=== PATIENT | female | born 1990 | race Caucasian/White ===

== ENCOUNTER 2022-11-18 08:48 | Emergency (ER) | payer BC, OTHER ==
[~2022-11-18] VITALS: Ht 160 cm; Wt 65.5 kg
[2022-11-18 09:25] VITALS: BP 133/76
[2022-11-18] MEDS ORDERED: MECL1TAB31 PO (09:59)
== END 2022-11-18 10:01 | disposition home or self-care (01) ==
LOC: ER 08:48
DX: R42 Dizziness and giddiness (principal)

== ENCOUNTER 2024-11-09 16:16 | Outpatient (CLI) | payer BC ==
[~2024-11-09 16:16] MED LIST: MECL12.586 PO
== END 2024-11-09 17:00 | disposition home or self-care (01) ==
LOC: LAB 16:16
DX: N39.0 Urinary tract infection, site not specified (principal); R31.9 Hematuria, unspecified
CPT/HCPCS: 87086